=== PATIENT | male | born 1955 | race Hispanic/Latino ===

== ENCOUNTER → 2023-06-06 08:11 | Outpatient (REF) | payer MEDICARE, OTHER, SELFPAY | LOC: DHSLP 08:11 | PROVIDERS: ATTENDING PHYSICIAN Internal Medicine Critical Care Medicine; FAMILY PHYSICIAN Family Medicine | DX: G47.33 Obstructive sleep apnea (adult) (pediatric) (principal); R09.02 Hypoxemia | CPT/HCPCS: 95800 ==

== ENCOUNTER 2023-08-31 12:06 | Outpatient (RCR) | payer MEDICARE, OTHER, SELFPAY | END 2023-08-31 23:59 | disposition home or self-care (01) | LOC: RPT 12:06 | PROVIDERS: ATTENDING PHYSICIAN Orthopaedic Surgery; FAMILY PHYSICIAN Family Medicine | DX: M25.511 Pain in right shoulder (principal); Z73.6 Limitation of activities due to disability | CPT/HCPCS: 97110; 97162 ==

== ENCOUNTER 2023-09-05 07:55 | Outpatient (RCR) | payer MEDICARE, OTHER, SELFPAY | END 2023-09-05 23:59 | disposition home or self-care (01) | LOC: RPT 07:55 | PROVIDERS: ATTENDING PHYSICIAN Orthopaedic Surgery; FAMILY PHYSICIAN Family Medicine | DX: M25.511 Pain in right shoulder (principal); Z73.6 Limitation of activities due to disability | CPT/HCPCS: 97110 ==

== ENCOUNTER → 2023-09-05 10:48 | Outpatient (REF) | payer MEDICARE, OTHER, SELFPAY ==
[2023-09-05 15:00] LABS: Vitamin D, 25-OH*** 40.5 ng/mL (30-80)
== END ==
LOC: HWLAB 10:48
PROVIDERS: ATTENDING PHYSICIAN Physician Assistant; FAMILY PHYSICIAN Family Medicine
DX: E55.9 Vitamin D deficiency, unspecified (principal); M54.50 Low back pain, unspecified
CPT/HCPCS: 36415; 72100; 72202; 82306

== ENCOUNTER 2023-09-07 11:22 | Outpatient (RCR) | payer MEDICARE, OTHER, SELFPAY | END 2023-09-07 23:59 | disposition home or self-care (01) | LOC: RPT 11:22 | PROVIDERS: ATTENDING PHYSICIAN Physician Assistant; FAMILY PHYSICIAN Family Medicine | DX: M54.51 Vertebrogenic low back pain (principal); Z73.6 Limitation of activities due to disability; M62.81 Muscle weakness (generalized) | CPT/HCPCS: 97110; 97161 ==

== ENCOUNTER 2023-11-02 08:00 | Outpatient (RCR) | payer MEDICARE, OTHER, SELFPAY | END 2023-11-02 23:59 | disposition home or self-care (01) | LOC: RPT 08:00 | PROVIDERS: ATTENDING PHYSICIAN Physician Assistant; FAMILY PHYSICIAN Family Medicine | DX: M54.51 Vertebrogenic low back pain (principal); M62.81 Muscle weakness (generalized); Z73.6 Limitation of activities due to disability | CPT/HCPCS: 97110; 97140 ==

== ENCOUNTER 2023-11-09 08:50 | Outpatient (RCR) | payer MEDICARE, OTHER, SELFPAY | END 2023-11-10 13:12 | disposition home or self-care (01) | LOC: RPT 08:50 | PROVIDERS: ATTENDING PHYSICIAN Physician Assistant; FAMILY PHYSICIAN Family Medicine | DX: M54.51 Vertebrogenic low back pain (principal); Z73.6 Limitation of activities due to disability; M62.81 Muscle weakness (generalized) | CPT/HCPCS: 97110 ==

== ENCOUNTER → 2024-01-30 15:46 | Outpatient (REF) | payer MEDICARE, OTHER, SELFPAY | LOC: PAVMRI 15:46 | PROVIDERS: ATTENDING PHYSICIAN Internal Medicine; FAMILY PHYSICIAN Family Medicine | DX: M54.50 Low back pain, unspecified (principal) | CPT/HCPCS: 72148 ==

== ENCOUNTER 2024-01-31 06:36 | Outpatient (RCR) | payer MEDICARE, OTHER, SELFPAY | END 2024-01-31 23:59 | disposition home or self-care (01) | LOC: RPT 06:36 | PROVIDERS: ATTENDING PHYSICIAN Internal Medicine; FAMILY PHYSICIAN Family Medicine | DX: M54.51 Vertebrogenic low back pain (principal); R53.1 Weakness; Z73.6 Limitation of activities due to disability | CPT/HCPCS: 97110; 97112; 97162; 97530 ==

== ENCOUNTER 2024-02-22 08:55 | Outpatient (RCR) | payer MEDICARE, OTHER, SELFPAY | END 2024-02-22 23:59 | disposition home or self-care (01) | LOC: RPT 08:55 | PROVIDERS: ATTENDING PHYSICIAN Internal Medicine; FAMILY PHYSICIAN Family Medicine | DX: M54.51 Vertebrogenic low back pain (principal); R53.1 Weakness; Z73.6 Limitation of activities due to disability | CPT/HCPCS: 97110; 97112; 97530 ==

== ENCOUNTER 2024-03-15 09:08 | Outpatient (RCR) | payer MEDICARE, OTHER, SELFPAY | END 2024-03-23 09:24 | disposition home or self-care (01) | LOC: RPT 09:08 | PROVIDERS: ATTENDING PHYSICIAN Internal Medicine; FAMILY PHYSICIAN Family Medicine | DX: M54.51 Vertebrogenic low back pain (principal); R53.1 Weakness; Z73.6 Limitation of activities due to disability | CPT/HCPCS: 97110; 97530 ==

== ENCOUNTER → 2024-04-25 08:38 | Outpatient (REF) | payer MEDICARE, OTHER, SELFPAY ==
[2024-04-25 10:20] LABS: Glycohemoglobin (HgbA1c) 6.2 % (4.0-5.6)
[2024-04-25 12:19] LABS: ALT (SGPT) 30 U/L (0-50); AST (SGOT) 27 U/L (17-59); Albumin 4.4 g/dl (3.5-5.0); Alkaline Phosphatase 56 U/L (38-126); Blood Urea Nitrogen 19 mg/dl (9-20); Calcium 9.3 mg/dl (8.4-10.2); Carbon Dioxide 28 mmol/L (22-30); Chloride 99 mmol/L (98-107); Glucose 101 mg/dl (70-99); HDL Cholesterol 63 mg/dl; LDL Cholesterol, Calculated 118 mg/dl; Potassium 4.2 mmol/L (3.5-5.1); Sodium 140 mmol/L (135-145); Total Bilirubin 0.8 mg/dl (0.2-1.3); Total Cholesterol 210 mg/dl (50-199); Triglyceride 145 mg/dl (10-149); Uric Acid 7.5 mg/dl (3.5-8.5); Very Low Density Lipoprotein 29 mg/dl (0-30); eGFR > 60.00
== END ==
LOC: HWLAB 08:38
PROVIDERS: ATTENDING PHYSICIAN Family Medicine
DX: E78.5 Hyperlipidemia, unspecified (principal); E11.69 Type 2 diabetes mellitus with other specified complication; M1A.00X0 Idiopathic chronic gout, unspecified site, without tophus (tophi)
CPT/HCPCS: 36415; 80053; 80061; 83036; 84550

== ENCOUNTER → 2024-09-02 07:48 | Outpatient (REF) | payer MEDICARE, OTHER, SELFPAY | LOC: PAVMRI 07:48 | PROVIDERS: ATTENDING PHYSICIAN Specialist; FAMILY PHYSICIAN Family Medicine | DX: M54.16 Radiculopathy, lumbar region (principal); M25.551 Pain in right hip | CPT/HCPCS: 72148; 73721 ==

== ENCOUNTER → 2024-12-11 08:27 | Outpatient (REF) | payer MEDICARE, OTHER, SELFPAY ==
[2024-12-11 12:37] LABS: Hematocrit 38.9 % (39.0-52.0); Hemoglobin 12.8 g/dL (13.0-18.0); Mean Corp Hgb Conc. 32.9 g/dL (33.0-37.0); Mean Corpuscular Volume 88.6 fL (80.0-94.0); Nucleated Red Blood Cells % 0 % (-); Platelet Count 235 10^3/uL (130-400); Red Cell Dist. Width 14.3 % (11.5-14.5)
[2024-12-11 13:15] LABS: Glycohemoglobin (HgbA1c) 6.0 % (4.0-5.6)
[2024-12-11 14:09] LABS: ALT (SGPT) 23 U/L (0-50); AST (SGOT) 24 U/L (17-59); Albumin 4.3 g/dl (3.5-5.0); Alkaline Phosphatase 53 U/L (38-126); Blood Urea Nitrogen 18 mg/dl (9-20); Calcium 9.5 mg/dl (8.4-10.2); Carbon Dioxide 31 mmol/L (22-30); Chloride 106 mmol/L (98-107); Glucose 123 mg/dl (70-99); HDL Cholesterol 45 mg/dl; LDL Cholesterol, Calculated 117 mg/dl; Potassium 3.9 mmol/L (3.5-5.1); Sodium 142 mmol/L (135-145); Total Protein 6.5 g/dl (6.3-8.2); Very Low Density Lipoprotein 34 mg/dl (0-30); eGFR > 60.00
[2024-12-11 14:44] LABS: Uric Acid 8.3 mg/dl (3.5-8.5)
[2024-12-11 15:05] LABS: PSA, Total - Diagnostic < 0.06 ng/ml (0.0-4.0)
[2024-12-11 15:06] LABS: Microalbumin, Random Urine 6.6 mg/dl (0.6-1.7)
[2024-12-11 15:25] LABS: Microalb - Urine Creatinine 142.200 mg/dl
== END ==
LOC: HWLAB 08:27
PROVIDERS: ATTENDING PHYSICIAN Family Medicine
DX: E11.69 Type 2 diabetes mellitus with other specified complication (principal); I10 Essential (primary) hypertension; Z85.46 Personal history of malignant neoplasm of prostate; E78.5 Hyperlipidemia, unspecified; M1A.00X0 Idiopathic chronic gout, unspecified site, without tophus (tophi)
CPT/HCPCS: 36415; 80053; 80061; 82043; 82570; 83036; 84153; 84550; 85025